=== PATIENT | male | born 1995 | race African-American/Black ===

== ENCOUNTER 2020-10-21 23:15 | Emergency (ER) | payer SELFPAY ==
[~2020-10-21] VITALS: Ht 188 cm; Wt 68.0 kg
--- NOTE | 2020-10-22 00:02 | PHYS DOC ---
Past History Past Surgical History: No Surgical History Alcohol Use: Occasionally General Adult EDM: Chief Complaint: HAND PROBLEM HPI: HPI: 25-year-old male presents with right hand pain. The patient got locked out of the vehicle and punched through the glass few days ago so that he can get in. He has various abrasions of the right knuckles. He presents today because he has pain of the proximal fifth metacarpal. He is concerned about fracture. He has no other complaints at this time. Review of Systems: Review of Systems: Constitutional: Denies fever or chills Eyes: Denies change in visual acuity HENT: Denies nasal congestion or sore throat Respiratory: Denies cough or shortness of breath Cardiovascular: Denies chest pain or edema GI: Denies abdominal pain, nausea, vomiting, bloody stools or diarrhea : Denies dysuria Musculoskeletal: Right hand pain Integument: Abrasions Neurologic: Denies headache, focal weakness or sensory changes Endocrine: Denies polyuria or polydipsia Lymphatic: Denies swollen glands Psychiatric: Denies depression or anxiety Allergies: Allergies: Allergies Coded Allergies Type Severity Reaction Last Updated Verified No Known Drug Allergies 10/21/20 No Physical Exam: PE: Constitutional: Well developed, well nourished, no acute distress, non-toxic appearance. [] HENT: Normocephalic, atraumatic, bilateral external ears normal, oropharynx moist, no oral exudates, nose normal. [] Eyes: PERRLA, EOMI, conjunctiva normal, no discharge. [] Neck: Normal range of motion, no tenderness, supple, no stridor. [] Cardiovascular: Heart rate regular rhythm, no murmur [] Lungs & Thorax: Bilateral breath sounds clear to auscultation [] Abdomen: Bowel sounds normal, soft, no tenderness, no masses, no pulsatile masses. [] Skin: Abrasions of the right knuckles, healing, no sign of infection. [] Back: No tenderness, no CVA tenderness. [] Extremities: Tenderness over the proximal fifth metacarpal right hand, no obvious deformity or ecchymosis. [] Neurologic: Alert and oriented X 3, normal motor function, normal sensory function, no focal deficits noted. [] Psychologic: Affect normal, judgement normal, mood normal. [] Current Patient Data: Vital Signs: Vital Signs Date Time Temp Pulse Resp B/P (MAP) Pulse Ox O2 Delivery O2 Flow Rate FiO2 10/21/20 23:15 98.2 64 18 113/68 (83) 98 Room Air EKG: EKG: [] Radiology/Procedures: Radiology/Procedures: [] Heart Score: C/O Chest Pain: N/A Risk Factors: Risk Factors: DM, Current or recent (<one month) smoker, HTN, HLP, family history of CAD, obesity. Risk Scores: Score 0 - 3: 2.5% MACE over next 6 weeks - Discharge Home Score 4 - 6: 20.3% MACE over next 6 weeks - Admit for Clinical Observation Score 7 - 10: 72.7% MACE over next 6 weeks - Early Invasive Strategies Course & Med Decision Making: Course & Med Decision Making Pertinent Labs and Imaging studies reviewed. (See chart for details) The patient's x-ray is negative for fracture. I have given him supplies to wrap his abrasions when he goes to work. He is stable for discharge at this time. [] Frank Disclaimer: Frank Disclaimer: This electronic medical record was generated, in whole or in part, using a voice recognition dictation system. Departure Departure: Impression: Primary Impression: Right hand pain Additional Impression: Abrasion of hand, right Qualified Codes: S60.511A - Abrasion of right hand, initial encounter Disposition: HOME / SELF CARE / HOMELESS Condition: STABLE Referrals: PCP,NO (PCP) Patient Instructions: Abrasions, Hand Contusion, [id number] SANDRA LI DO Oct 22, 2020 00:02
[2020-10-22 00:06] VITALS: BP 111/67
--- NOTE | 2020-10-22 05:10 | RAD ---
EXAMINATION: Right and radiograph. VIEWS: 3 views of the right hand COMPARISON: None INDICATION:25 years, Male, cut on glass and pain fifth metacarpal. FINDINGS/ IMPRESSION: No acute fracture, dislocation or subluxation. There is a chronic appearing avulsion fracture off the dorsal base of the first proximal phalanx. No radiopaque or definite radiolucent soft tissue foreign bodies. Electronically signed by: Mahendra Ibarra DO (10/22/2020 5:08 AM) [facility]
== END 2020-10-22 00:06 | disposition home or self-care (01) ==
LOC: ER 23:15
DX: S60.511A Abrasion of right hand, initial encounter (principal); W25.XXXA Contact with sharp glass, initial encounter; Y93.89 Activity, other specified; Y92.89 Other specified places as the place of occurrence of the external cause; Y99.8 Other external cause status
CPT/HCPCS: 73130; 99283

== ENCOUNTER 2020-11-13 23:32 | Emergency (ER) | payer BC | END 2020-11-14 01:02 | disposition left against medical advice (07) | LOC: ER 23:32 | DX: M79.641 Pain in right hand (principal); R51.9 Headache, unspecified; Z53.21 Procedure and treatment not carried out due to patient leaving prior to being seen by health care provider ==